=== PATIENT | male | born 1990 | race Hispanic/Latino ===

== ENCOUNTER 2020-11-23 10:16 | Emergency (ER) | payer OTHER ==
[2020-11-23] MEDS ORDERED: Ketorolac Tromethamine 30 MG/ML VIAL ONE (11:01)
[2020-11-23 11:07] LABS: #Monocytes 0.6 thou/uL (0.11-0.59); #Neutrophils 14.7 thou/uL (1.40-6.50); %Basophils 0.1 % (0.0-1.0); %Eosinophils 0.1 % (0.0-10.0); %Lymphocytes 5.9 % (21.0-51.0); %Monocytes 3.6 % (0.0-10.0); %Neutrophils 90.3 % (42.0-75.0); Hemoglobin 16.9 g/dL (14.0-18.0); Mean Corpuscular HGB CONC 34.1 g/dL (32.0-36.0); Mean Corpuscular Hemoglobin 31.7 pg (27.0-31.0); Mean Corpuscular Volume 92.9 fL (78.0-98.0); Mean Platelet Volume 8.9 fL (7.4-10.4); Platelet Count 189 thou/uL (130-400); RBC Distribution Width 11.4 % (11.5-14.5); Red Blood Cell (RBC) Count 5.33 mill/uL (4.70-6.10); White Blood Cell (WBC) Count 16.3 thou/uL (4.8-10.8)
[2020-11-23] MEDS ORDERED: Iopamidol-370 76% 500 ML 1 ML ONE (11:24)
[2020-11-23 11:30] LABS: ALT (SGPT) 46 U/L (8-55); AST (SGOT) 22 U/L (5-34); Albumin 5.1 g/dL (3.5-5.0); Alkaline Phosphatase 69 U/L (40-110); Anion Gap 12 mmol/L (10-20); BUN (Urea Nitrogen) 12 mg/dL (8.9-20.6); Bilirubin, Total 1.4 mg/dL (0.2-1.2); Calc. Creatinine Clearance 0 mL/min (70-130); Calcium 9.3 mg/dL (7.8-10.44); Carbon Dioxide 25 mmol/L (22-29); Chloride 104 mmol/L (98-107); Globulin 3.3 g/dL (2.4-3.5); Glucose 130 mg/dL (70-105); Lipase 12 U/L (8-78); Potassium 4.2 mmol/L (3.5-5.1); Protein, Total 8.4 g/dL (6.0-8.3); Sodium 137 mmol/L (136-145)
[2020-11-23] MEDS ORDERED: cefTRIAXone\\ROCEPHIN 1 GM VIAL ONE (12:09)
[2020-11-23 12:59] LABS: Bacteria/HPF None Seen HPF (None Seen); Bilirubin Negative (Negative); Blood, Urine Trace (Negative); Clarity Clear (Clear); Glucose, Urine (Dipstick) 70 mg/dL (Negative); Ketone, Urine 20 mg/dL (Negative); Leukocyte Negative Leu/uL (Negative); Nitrite Negative (Negative); Protein, Urine (Dipstick) Negative (Neg-Trace); Specific Gravity, Urine 1.048 (1.002-1.036); Squamous Epithelial None Seen HPF (0-3); Urobilinogen Normal mg/dL (Less than 2); WBC/HPF 0-3 HPF (0-3)
== END 2020-11-23 14:37 | disposition home or self-care (01) ==
LOC: ERS 10:16
DX: N10 Acute pyelonephritis (principal); R10.816 Epigastric abdominal tenderness; R10.811 Right upper quadrant abdominal tenderness; K21.9 Gastro-esophageal reflux disease without esophagitis; I10 Essential (primary) hypertension; F17.220 Nicotine dependence, chewing tobacco, uncomplicated
CPT/HCPCS: 36415; 74177; 80053; 81003; 81015; 83605; 83690; 85025; 87040; 87086; 96365; 96375; J0696; J1885; Q9967

== ENCOUNTER 2021-07-04 06:41 | Emergency (ER) | payer OTHER, SELFPAY ==
[2021-07-04] MEDS ORDERED: Famotidine/PF 20 mg/2ml Vial ONE (07:26)
[2021-07-04 07:33] LABS: Bacteria/HPF None Seen HPF (None Seen); Bilirubin Negative (Negative); Blood, Urine 2+ (Negative); Clarity Clear (Clear); Glucose, Urine (Dipstick) 50 mg/dL (Negative); Ketone, Urine Negative (Negative); Leukocyte Negative Leu/uL (Negative); Nitrite Negative (Negative); Protein, Urine (Dipstick) 20 mg/dL (Neg-Trace); Specific Gravity, Urine 1.034 (1.002-1.036); Squamous Epithelial None Seen HPF (0-3); Urobilinogen Normal mg/dL (Less than 2); WBC/HPF 0-3 HPF (0-3)
[2021-07-04 07:33] LABS: #Lymphocytes 1.1 thou/uL (1.20-3.40); #Monocytes 0.5 thou/uL (0.11-0.59); #Neutrophils 13.5 thou/uL (1.40-6.50); %Basophils 0.1 % (0.0-1.0); %Eosinophils 0.2 % (0.0-10.0); %Lymphocytes 7.1 % (21.0-51.0); %Monocytes 3.2 % (0.0-10.0); %Neutrophils 89.5 % (42.0-75.0); Hemoglobin 16.6 g/dL (14.0-18.0); Mean Corpuscular HGB CONC 35.5 g/dL (32.0-36.0); Mean Corpuscular Hemoglobin 32.5 pg (27.0-31.0); Mean Corpuscular Volume 91.5 fL (78.0-98.0); Mean Platelet Volume 8.8 fL (7.4-10.4); Platelet Count 169 thou/uL (130-400); RBC Distribution Width 11.4 % (11.5-14.5); Red Blood Cell (RBC) Count 5.12 mill/uL (4.70-6.10); White Blood Cell (WBC) Count 15.1 thou/uL (4.8-10.8)
[2021-07-04 08:02] LABS: ALT (SGPT) 66 U/L (8-55); AST (SGOT) 48 U/L (5-34); Albumin 4.6 g/dL (3.5-5.0); Alkaline Phosphatase 65 U/L (40-110); Anion Gap 12 mmol/L (10-20); BUN (Urea Nitrogen) 14 mg/dL (8.9-20.6); Bilirubin, Total 0.7 mg/dL (0.2-1.2); Calc. Creatinine Clearance 0 mL/min (70-130); Calcium 9.3 mg/dL (7.8-10.44); Carbon Dioxide 25 mmol/L (22-29); Chloride 105 mmol/L (98-107); Globulin 2.8 g/dL (2.4-3.5); Glucose 110 mg/dL (70-105); Lipase 12 U/L (8-78); Potassium 4.4 mmol/L (3.5-5.1); Protein, Total 7.4 g/dL (6.0-8.3); Sodium 138 mmol/L (136-145)
[2021-07-04 11:26] LABS: SARS-CoV-2 NAA Rapid Test Not Detected (NotDetected)
[2021-07-04] MEDS ORDERED: Ondansetron PF 4 MG/2 ML Vial IVP PRN (12:22)
[2021-07-04] MEDS ORDERED: Ondansetron ODT 4 MG TAB PO PRN (12:23)
[2021-07-04] MEDS ORDERED: Sodium Chloride 0.9% 1,000 ML IV SCH (12:30)
[2021-07-04] MEDS ORDERED: Ketorolac Tromethamine 30 MG/ML VIAL ONE (13:10)
[2021-07-04] MEDS ORDERED: Bupivacaine 0.25% HCL 30 ML VIAL ONE (13:28)
[2021-07-04] MEDS ORDERED: Lidocaine 1% w/Epinephrine 1:100K 20 ML VIAL ONE (13:28)
[2021-07-04] MEDS ORDERED: Fentanyl 100 MCG/2 ML VIAL ONE ×3 (14:21→16:19)
[2021-07-04] MEDS ORDERED: Midazolam HCl 2 mg/2 ml Vial ONE (14:21)
[2021-07-04] MEDS ORDERED: HYDROmorphone 2 MG/ML VIAL ONE (14:21)
[2021-07-04] MEDS ORDERED: Dexamethasone 20 MG/5 ML VIAL ONE (14:31)
[2021-07-04] MEDS ORDERED: Rocuronium Bromide 10 MG/ML (10ML VIAL) ONE (14:31)
[2021-07-04] MEDS ORDERED: Glycopyrrolate 0.2 MG/ML 5 ML SYRINGE ONE (14:31)
[2021-07-04] MEDS ORDERED: Ondansetron PF 4 MG/2 ML Vial ONE (14:31)
[2021-07-04] MEDS ORDERED: ePHEDrine 50 MG/ML VIAL ONE (14:31)
[2021-07-04] MEDS ORDERED: Lidocaine 1% PF 5 ML VIAL ONE (14:31)
[2021-07-04] MEDS ORDERED: PROPOFOL 200 MG/20 ML VIAL ONE (14:31)
[2021-07-04] MEDS ORDERED: HYDROmorphone 2 MG/ML VIAL SLOW IVP PRN (14:58)
[2021-07-04] MEDS ORDERED: Promethazine HCl 25 MG/ML VIAL IVPB PRN (14:58)
[2021-07-04] MEDS ORDERED: Promethazine HCl 25 MG/ML VIAL IM PRN (14:58)
[2021-07-04] MEDS ORDERED: Ketorolac Tromethamine 30 MG/ML VIAL IVP PRN (14:58)
[2021-07-04] MEDS ORDERED: Ondansetron HCl/PF 4 MG/2 ML Vial IVP PRN (14:58)
[2021-07-04] MEDS ORDERED: traMADol HCl 50 MG TAB PO PRN (15:36)
[2021-07-04] MEDS ORDERED: Acetaminophen 500 MG TAB PO PRN (15:36)
[2021-07-04] MEDS ORDERED: Ibuprofen 600 MG TAB PO PRN (15:36)
[2021-07-04] MEDS ORDERED: Labetalol HCl 100 MG/20 ML VIAL ONE (16:02)
== END 2021-07-04 11:53 | disposition admitted as inpatient to this hospital (09) ==
LOC: ERS 06:41 → SURG B 10:13 → ERS 11:52
PROC: 0FT44ZZ Resection of Gallbladder, Percutaneous Endoscopic Approach (ICD-10-PCS; principal; 2021-07-04)
DX: K81.9 Cholecystitis, unspecified (principal); I10 Essential (primary) hypertension; K21.9 Gastro-esophageal reflux disease without esophagitis; F17.220 Nicotine dependence, chewing tobacco, uncomplicated; Z20.822 Contact with and (suspected) exposure to COVID-19
CPT/HCPCS: 36415; 76705; 80053; 81003; 81015; 83690; 84484; 85025; 88304; 93005; 96365; 96375; J1100; J1170; J1885; J1956; J2250; J2405; J2704; J3010; J3490; S0020; S0028; U0002

== ENCOUNTER 2021-08-25 13:37 | Emergency (ER) | payer BC, OTHER ==
[2021-08-25 14:51] LABS: #Lymphocytes 1.1 thou/uL (1.20-3.40); #Monocytes 0.7 thou/uL (0.11-0.59); #Neutrophils 7.8 thou/uL (1.40-6.50); %Basophils 0.1 % (0.0-1.0); %Eosinophils 0.4 % (0.0-10.0); %Lymphocytes 11.2 % (21.0-51.0); %Monocytes 7.6 % (0.0-10.0); %Neutrophils 80.7 % (42.0-75.0); Hemoglobin 16.8 g/dL (14.0-18.0); Mean Corpuscular HGB CONC 35.8 g/dL (32.0-36.0); Mean Corpuscular Hemoglobin 33.2 pg (27.0-31.0); Mean Corpuscular Volume 92.6 fL (78.0-98.0); Mean Platelet Volume 8.6 fL (7.4-10.4); Platelet Count 178 thou/uL (130-400); RBC Distribution Width 11.6 % (11.5-14.5); Red Blood Cell (RBC) Count 5.08 mill/uL (4.70-6.10); White Blood Cell (WBC) Count 9.7 thou/uL (4.8-10.8)
[2021-08-25 15:13] LABS: ALT (SGPT) 69 U/L (8-55); AST (SGOT) 25 U/L (5-34); Albumin 4.7 g/dL (3.5-5.0); Alkaline Phosphatase 74 U/L (40-110); Anion Gap 12 mmol/L (10-20); BUN (Urea Nitrogen) 10 mg/dL (8.9-20.6); Bilirubin, Total 0.9 mg/dL (0.2-1.2); CK (CPK) 106 U/L (30-200); Calc. Creatinine Clearance 0 mL/min (70-130); Calcium 9.5 mg/dL (7.8-10.44); Carbon Dioxide 25 mmol/L (22-29); Chloride 105 mmol/L (98-107); Globulin 3.5 g/dL (2.4-3.5); Glucose 93 mg/dL (70-105); Lipase 14 U/L (8-78); Potassium 3.8 mmol/L (3.5-5.1); Protein, Total 8.2 g/dL (6.0-8.3); Sodium 138 mmol/L (136-145)
== END 2021-08-25 15:34 | disposition home or self-care (01) ==
LOC: ERS 13:37
DX: U07.1 COVID-19 (principal); I10 Essential (primary) hypertension; K21.9 Gastro-esophageal reflux disease without esophagitis; F17.220 Nicotine dependence, chewing tobacco, uncomplicated
CPT/HCPCS: 71045; 80053; 82550; 83690; 84484; 85025; 85379; 93005

== ENCOUNTER 2025-04-27 16:13 | Emergency (ER) | payer BC ==
[2025-04-27] MEDS ORDERED: Ketorolac Tromethamine 30 MG (1 mL) VIAL ONE (16:46)
[2025-04-27 17:14] LABS: #Basophils 0.03 10x3/uL (0.0-0.2); #Eosinophils 0.08 10x3/uL (0.0-0.7); #Monocytes 0.71 10x3/uL (0.11-0.59); #Neutrophils 5.67 10x3/uL (1.40-6.50); %Basophils 0.3 % (0.0-1.0); %Eosinophils 0.8 % (0.0-10.0); %Lymphocytes 31.8 % (21.0-51.0); %Monocytes 7.4 % (0.0-10.0); %Neutrophils 59.5 % (42.0-75.0); Hematocrit 46.2 % (42.0-52.0); Hemoglobin 16.3 g/dL (14.0-18.0); Mean Corpuscular Hemoglobin 31.2 pg (27.0-31.0); Mean Corpuscular Volume 88.5 fL (78.0-98.0); Platelet Count 214 10x3/uL (130-400); Red Blood Cell (RBC) Count 5.22 mill/uL (4.70-6.10); White Blood Cell (WBC) Count 9.55 10x3/uL (4.8-10.8)
[2025-04-27 17:31] LABS: Bacteria/HPF None Seen HPF (None Seen); CAUTI Indications for Culture Pelvic or flank pain; Glucose, Urine (Dipstick) Normal (Negative); Leukocyte Negative Leu/uL (Negative); Protein, Urine (Dipstick) 10 mg/dL (Neg-Trace); RBC/HPF Greater than 50 HPF (0-3); Specific Gravity, Urine 1.025 (1.002-1.036)
[2025-04-27 17:32] LABS: Urine Culture Reflex No No
[2025-04-27 17:35] LABS: ALT (SGPT) 292 U/L (Less than 45); AST (SGOT) 106 U/L (11-34); Albumin 4.8 g/dL (3.1-4.5); Alkaline Phosphatase 92 U/L (40-110); Anion Gap 18 mmol/L (10-20); BUN (Urea Nitrogen) 10 mg/dL (8.9-20.6); Bilirubin, Total 1.2 mg/dL (0.3-1.2); Calc. Creatinine Clearance 0 mL/min (70-130); Calcium 9.6 mg/dL (7.8-10.44); Carbon Dioxide 25 mmol/L (22-29); Chloride 104 mmol/L (98-107); Globulin 3.0 g/dL (2.4-3.5); Glucose 96 mg/dL (70-105); Lipase 24 U/L (8-78); Potassium 3.6 mmol/L (3.5-5.1); Sodium 143 mmol/L (136-145)
== END 2025-04-27 18:29 | disposition home or self-care (01) ==
LOC: ERS 16:13
DX: R10.9 Unspecified abdominal pain (principal); R31.9 Hematuria, unspecified; I10 Essential (primary) hypertension; F17.220 Nicotine dependence, chewing tobacco, uncomplicated
CPT/HCPCS: 74176; 80053; 81001; 83690; 85025; 96374; J1885

== ENCOUNTER 2025-06-28 09:54 | Observation (INO) | payer BC ==
[2025-06-28 10:47] LABS: #Basophils Less than 0.03 10x3/uL (0.0-0.2); #Eosinophils 0.07 10x3/uL (0.0-0.7); #Monocytes 1.05 10x3/uL (0.11-0.59); #Neutrophils 10.62 10x3/uL (1.40-6.50); %Basophils 0.1 % (0.0-1.0); %Eosinophils 0.5 % (0.0-10.0); %Lymphocytes 13.9 % (21.0-51.0); %Monocytes 7.7 % (0.0-10.0); %Neutrophils 77.5 % (42.0-75.0); Hematocrit 46.1 % (42.0-52.0); Hemoglobin 16.5 g/dL (14.0-18.0); Mean Corpuscular Hemoglobin 32.0 pg (27.0-31.0); Mean Corpuscular Volume 89.3 fL (78.0-98.0); Platelet Count 183 10x3/uL (130-400); Red Blood Cell (RBC) Count 5.16 mill/uL (4.70-6.10); White Blood Cell (WBC) Count 13.70 10x3/uL (4.8-10.8)
[2025-06-28 10:58] LABS: Bacteria/HPF None Seen HPF (None Seen); CAUTI Indications for Culture Pelvic or flank pain; Glucose, Urine (Dipstick) Normal (Negative); Leukocyte Negative Leu/uL (Negative); Protein, Urine (Dipstick) 10 mg/dL (Neg-Trace); RBC/HPF Greater than 50 HPF (0-3); Specific Gravity, Urine 1.021 (1.002-1.036); Yeast-Budding 1+ HPF (None Seen)
[2025-06-28 11:00] LABS: Urine Culture Reflex No No
[2025-06-28 11:10] LABS: ALT (SGPT) 172 U/L (Less than 45); AST (SGOT) 67 U/L (11-34); Albumin 4.7 g/dL (3.1-4.5); Alkaline Phosphatase 75 U/L (40-110); Anion Gap 14 mmol/L (10-20); BUN (Urea Nitrogen) 15 mg/dL (8.9-20.6); Bilirubin, Total 1.1 mg/dL (0.3-1.2); Calc. Creatinine Clearance 0 mL/min (70-130); Calcium 9.3 mg/dL (7.8-10.44); Carbon Dioxide 24 mmol/L (22-29); Chloride 105 mmol/L (98-107); Globulin 2.9 g/dL (2.4-3.5); Glucose 92 mg/dL (70-105); Lipase 20 U/L (8-78); Potassium 4.2 mmol/L (3.5-5.1); Sodium 139 mmol/L (136-145)
[2025-06-28] MEDS ORDERED: Iopamidol-370 76% 500 ML MDV (1 ML CHARGE) ONE (11:52)
[2025-06-28] MEDS ORDERED: Ketorolac Tromethamine 30 MG (1 mL) VIAL ONE (12:06)
[2025-06-28] MEDS ORDERED: Ondansetron PF 4 MG/2 ML Vial ONE (12:06)
[2025-06-28] MEDS ORDERED: Acetaminophen 325 MG TAB PO PRN (15:44)
[2025-06-28] MEDS ORDERED: Electrolyte Replacement Protocol 1 EACH FS SCH (15:45)
[2025-06-28] MEDS ORDERED: Potassium Chloride 20 MEQ in Premix 1 BAG IVPB PRN (16:00)
[2025-06-28] MEDS ORDERED: Magnesium 2 GM/50 ML(in water) 2 GM in Premix 1 BAG IVPB PRN (16:00)
[2025-06-28] MEDS ORDERED: PHOS-NAK 1 PKT PACK PO PRN (16:00)
[2025-06-29 05:43] VITALS: BMI 35.5
[2025-06-29 05:44] LABS: #Basophils Less than 0.03 10x3/uL (0.0-0.2); #Eosinophils 0.09 10x3/uL (0.0-0.7); #Monocytes 1.22 10x3/uL (0.11-0.59); #Neutrophils 8.32 10x3/uL (1.40-6.50); %Basophils 0.2 % (0.0-1.0); %Eosinophils 0.8 % (0.0-10.0); %Lymphocytes 19.0 % (21.0-51.0); %Monocytes 10.2 % (0.0-10.0); %Neutrophils 69.5 % (42.0-75.0); Hematocrit 45.0 % (42.0-52.0); Hemoglobin 15.9 g/dL (14.0-18.0); Mean Corpuscular Hemoglobin 31.8 pg (27.0-31.0); Mean Corpuscular Volume 90.0 fL (78.0-98.0); Platelet Count 184 10x3/uL (130-400); Red Blood Cell (RBC) Count 5.00 mill/uL (4.70-6.10); White Blood Cell (WBC) Count 11.97 10x3/uL (4.8-10.8)
[2025-06-29 06:00] LABS: ALT (SGPT) 126 U/L (Less than 45); AST (SGOT) 48 U/L (11-34); Albumin 4.2 g/dL (3.1-4.5); Alkaline Phosphatase 68 U/L (40-110); Anion Gap 11 mmol/L (10-20); BUN (Urea Nitrogen) 14 mg/dL (8.9-20.6); Bilirubin, Total 1.4 mg/dL (0.3-1.2); Calc. Creatinine Clearance 105 mL/min (70-130); Calcium 8.7 mg/dL (7.8-10.44); Carbon Dioxide 22 mmol/L (22-29); Chloride 107 mmol/L (98-107); Globulin 2.7 g/dL (2.4-3.5); Glucose 103 mg/dL (70-105); Potassium 3.7 mmol/L (3.5-5.1); Sodium 136 mmol/L (136-145)
[2025-06-29] MEDS ORDERED: LevoFLOXacin 500 mg/D5W 500 MG in Premix 1 BAG IVPB SCH (06:15)
[2025-06-29] MEDS ORDERED: fentaNYL PF 100 MCG/2 ML SYRINGE ONE ×2 (13:07→13:45)
[2025-06-29] MEDS ORDERED: LevoFLOXacin D5W 500 mg (100 mL) BAG ONE (13:10)
[2025-06-29] MEDS ORDERED: PROPOFOL 200 MG/20 ML VIAL ONE (13:30)
[2025-06-29] MEDS ORDERED: Ondansetron PF 4 MG/2 ML Vial ONE (13:33)
[2025-06-29] MEDS: Ketorolac Tromethamine 30 MG (1 mL) VIAL IVP PRN (17:33)
[2025-06-29 17:47] VITALS: BP 143/87; TEMP 98.5
== END 2025-06-29 17:55 | disposition home or self-care (01) ==
LOC: ERS 09:54 → ERHOLD 15:29 → T4-A 18:57
PROVIDERS: ADMIT Internal Medicine; ATTEND Student in an Organized Health Care Education/Training Program
PROC: BT1FZZZ Fluoroscopy of Left Kidney, Ureter and Bladder (ICD-10-PCS; principal; 2025-06-28)
PROC: 0WHR8YZ Insertion of Other Device into Genitourinary Tract, Via Natural or Artificial Opening Endoscopic (ICD-10-PCS; 2025-06-28)
DX: N13.2 Hydronephrosis with renal and ureteral calculous obstruction (principal); I10 Essential (primary) hypertension; G47.33 Obstructive sleep apnea (adult) (pediatric); F17.200 Nicotine dependence, unspecified, uncomplicated; Z79.899 Other long term (current) drug therapy; Z88.1 Allergy status to other antibiotic agents
CPT/HCPCS: 36415; 74177; 74420; 80053; 81001; 83690; 85025; 87086; 96361; 96374; 96375; C1758; C1769; C2617; G0378; J1100; J1885; J1956; J2250; J2270; J2405; J2704; J7030; Q9967

== ENCOUNTER 2025-07-06 06:56 | Day surgery (SDC) | payer BC ==
[2025-07-01 12:03] VITALS: BMI 35.5
[2025-07-06] MEDS ORDERED: Rocuronium Bromide 10 MG/ML (10ML VIAL) ONE (08:56)
[2025-07-06] MEDS ORDERED: LevoFLOXacin D5W 500 mg (100 mL) BAG ONE (09:23)
[2025-07-06] MEDS ORDERED: fentaNYL PF 100 MCG/2 ML SYRINGE ONE (10:05)
[2025-07-06] MEDS ORDERED: Ketorolac Tromethamine 30 MG (1 mL) VIAL ONE (10:22)
[2025-07-06] MEDS ORDERED: PROPOFOL 200 MG/20 ML VIAL ONE (10:22)
[2025-07-06] MEDS ORDERED: Ondansetron PF 4 MG/2 ML Vial ONE (10:29)
[2025-07-06] MEDS ORDERED: SUGAMMADEX SODIUM 200 MG/2 ML VIAL ONE (10:30)
[2025-07-06] MEDS ORDERED: PHENYLEPHRINE-NS 100 MCG/ML 10 ML SYRINGE ONE (11:01)
[2025-07-18 20:14] LABS: CA Oxalate Dihydrate 80 % (.); CA Oxalate Monohydrate 20 % (.); Color Tan (.); Stone Weight 114 mg (.)
== END 2025-07-06 14:05 | disposition home or self-care (01) ==
LOC: SDC 06:56
PROVIDERS: ATTEND Urology
PROC: 0TVD8ZZ Restriction of Urethra, Via Natural or Artificial Opening Endoscopic (ICD-10-PCS; principal; 2025-07-06)
DX: N20.0 Calculus of kidney (principal); Z90.49 Acquired absence of other specified parts of digestive tract
CPT/HCPCS: 74018; 74420; 82365; 88300; C1747; C1758; C1769; C2617; J1100; J1885; J1956; J2250; J2405; J2704; J3010; Q9967